=== PATIENT | female | born 1995 | race Caucasian/White ===

== ENCOUNTER 2017-04-14 13:25 | Emergency (ER) | payer BC ==
[~2017-04-14] VITALS: Ht 177.8 cm; Wt 65.2 kg
[2017-04-14 13:31] VITALS: TEMP 36.5; Ht 177.8 cm; Wt 65.2 kg
--- NOTE | 2017-04-14 14:07 | EMERGENCY ROOM VISIT NOTE ---
History First contact with patient: 13:41 Chief Complaint: PELVIC PAIN Stated Complaint: PELVIC PAIN, ABD BLEEDING History of Present Illness The patient is a 21 year old female who presents to the Emergency Room with complaints of heavy vaginal bleeding for the last 2 days. The patient just finished with her menses last week. She does admit to missing one of her control pills earlier this week. She is concerned because there were heavy clots. She denies any severe abdominal cramping. No lightheadedness, chest pain or shortness of breath. No fever or chills. The patient was recently diagnosed with cervical dysplasia. She is due for a biopsy next week. Review of Systems 10 system review performed and negative unless noted in HPI or below Past Medical/Surgical History Cervical dysplasia Social History Smoking Status: Never Smoker Marital Status: single Occupation Status: [employer] student Current/Historical Medications Scheduled Control Pills ( Control Pills), 1 TAB PO DAILY Scheduled PRN Lisdexamfetamine Dimesylate (Vyvanse), 30 MG PO DAILY PRN for UNDECIDED Trazodone Hcl (Trazodone), Unknown Dose PO DAILY PRN for UNDECIDED Physical Exam Vital Signs Date Time Temp Pulse Resp B/P (MAP) Pulse Ox O2 Delivery O2 Flow Rate FiO2 04/14/17 15:32 68 16 118/58 98 Room Air 04/14/17 13:31 36.5 75 18 113/70 97 Room Air Physical Exam VITALS: Vitals are noted on the nurse's note and reviewed by myself. Vital signs stable. GENERAL: 21-year-old female, anxious in appearance,, SKIN: The skin was without rashes, erythema, edema, or bruising. HEAD: Normocephalic atraumatic. HEART: Regular rate and rhythm without murmurs gallops or rubs. LUNGS: Clear to auscultation bilaterally without wheezes, rales or rhonchi. No accessory muscle use. ABDOMEN: Positive bowel sounds x 4.Soft, nontender, without organomegaly. No guarding or rebound tenderness. MUSCULOSKELETAL: No muscle atrophy, erythema, or edema noted. . Strength 5/5 throughout. NEURO: Patient was alert and oriented to person place and time. Normal sensation to touch. No focal neurological deficits. Medical Decision & Procedures ER Provider Diagnostic Interpretation: pelvic US Patient Name: MARY LEARY Unit Number: [id number] Dictated: 04/14/171457 Transcribed: 04/14/171457 EV Printed Date/Time: [~ rep prt dt]/[~ rep prt tm] [~ rep ct labl] - [~ rep ct ivnm] [facility] [place] [address] Dictated: 04/14/171457 Transcribed: 04/14/171457 EV Printed Date/Time: [~ rep prt dt]/[~ rep prt tm] [~ rep ct labl] - [~ rep ct ivnm] IMPRESSION: Unremarkable sonographic assessment of the pelvis. Electronically signed by: Sadi Willis M.D. 04/14/2017 2:59 PM Dictated Date/Time: 04/14/2017 2:58 PM The status of this report is Signed. Draft = Not yet reviewed or approved by Radiologist. Signed = Reviewed and approved by Radiologist. <AttendingPhy></AttendingPhy> <FamilyPhy>[facility]</FamilyPhy> <PrimaryPhy>[facility]</PrimaryPhy> <UnitNumber>[id number]</ UnitNumber> <VisitNumber>[id number]</VisitNumber> <PatientName>JERONIMOMARY Medina</PatientName> <DateOfBirth>1995</DateOfBirth> <Location>[facility]< /Location> <ServiceDate>04/14/17</ServiceDate> <MNE>ESINDI</MNE> <OrderingPhy> Patrick Amos M.D.</OrderingPhy> <OrderingPhyMNE>f rep ord dr vaz</ OrderingPhyMNE> <DictatingPhyMNE>f rep dict dr vaz</DictatingPhyMNE> <CCListMNE> f rep ct miguel ae</CCListMNE> <AdmittingPhyMNE>f pt admit dr vaz</AdmittingPhyMNE> < AttendingPhyMNE>f pt attend dr vaz</AttendingPhyMNE> <ConsultingPhyMNE>f pt consult dr vaz</ConsultingPhyMNE> <FamilyPhyMNE>f pt fam dr mne</FamilyPhyMNE> <OtherPhyMNE>f pt other dr mne</OtherPhyMNE> < PrimaryPhyMNE>f pt prim care dr mne</PrimaryPhyMNE> <ReferringPhyMNE>f pt referring dr mne</ReferringPhyMNE> Laboratory Results 04/14/17 14:00 Red Blood Count 4.56, Mean Corpuscular Volume 86.6, Mean Corpuscular Hemoglobin 30.0, Mean Corpuscular Hemoglobin Concent 34.7, Mean Platelet Volume 10.3, Neutrophils (%) (Auto) 68.5, Lymphocytes (%) (Auto) 22.3, Monocytes (%) (Auto) 8.1, Eosinophils (%) (Auto) 0.7, Basophils (%) (Auto) 0.2, Neutrophils # (Auto) 3.74, Lymphocytes # (Auto) 1.22, Monocytes # (Auto) 0.44, Eosinophils # (Auto) 0.04, Basophils # (Auto) 0.01 04/14/17 14:00 Test 04/14/17 14:00 White Blood Count 5.46 K/uL (4.8-10.8) Red Blood Count 4.56 M/uL (4.2-5.4) Hemoglobin 13.7 g/dL (12.0-16.0) Hematocrit 39.5 % (37-47) Mean Corpuscular Volume 86.6 fL (80-100) Mean Corpuscular Hemoglobin 30.0 pg (25-34) Mean Corpuscular Hemoglobin Concent 34.7 g/dl (32-36) Platelet Count 155 K/uL (130-400) Mean Platelet Volume 10.3 fL (7.4-10.4) Neutrophils (%) (Auto) 68.5 % Lymphocytes (%) (Auto) 22.3 % Monocytes (%) (Auto) 8.1 % Eosinophils (%) (Auto) 0.7 % Basophils (%) (Auto) 0.2 % Neutrophils # (Auto) 3.74 K/uL (1.4-6.5) Lymphocytes # (Auto) 1.22 K/uL (1.2-3.4) Monocytes # (Auto) 0.44 K/uL (0.11-0.59) Eosinophils # (Auto) 0.04 K/uL (0-0.5) Basophils # (Auto) 0.01 K/uL (0-0.2) RDW Standard Deviation 39.7 fL (36.4-46.3) RDW Coefficient of Variation 12.5 % (11.5-14.5) Immature Granulocyte % (Auto) 0.2 % Immature Granulocyte # (Auto) 0.01 K/uL (0.00-0.02) Anion Gap 7.0 mmol/L (3-11) Est Creatinine Clear Calc Drug Dose 110.8 ml/min Estimated GFR () 117.7 Estimated GFR (Non- 101.6 BUN/Creatinine Ratio 13.6 (10-20) Calcium Level 9.1 mg/dl (8.5-10.1) Human Chorionic Gonadotropin, Qual NEG (NEG) ED Course Patient was seen and examined Vital signs including blood pressure were reviewed medications list was verified with patient Labs were obtained, and a saline lock was established A pelvic ultrasound was performed The patient was reassessed and resting comfortably in bed. We discussed the results of her workup. She voiced understanding. I reviewed discharge instructions the patient. They voiced understanding and had no further questions. Medical Decision Differential diagnosis: Menorrhagia, uterine fibroids, , thyroid abnormality, anemia This patient is a 21-year-old female that presents emergency department with heavy vaginal bleeding. On exam, she was nontoxic in appearance. Her abdomen was benign. Her vital signs are stable. Her blood work was unremarkable. An ultrasound was performed. No acute abnormalities were noted. Her breakthrough bleeding is likely due to missing her oral contraceptive. I believe she is stable to be discharged home. She has a follow-up appointment next week for a cervical biopsy with her video producer. If she has any worsening symptoms prior to her appointment, she will return immediately to the emergency department. This chart was completed in part utilizing [employer] Voice Recognition software. Attempts were made to minimize the grammatical errors, random word insertions, pronoun errors and incomplete sentences. Any formal questions or concerns about the content, text or information contained within the body of this dictation should be directly addressed to the provider for clarification. Impression Primary Impression: Vaginal bleeding Departure Information Dispostion Home / Self-Care Condition GOOD Referrals No Doctor, Assigned (PCP) [facility] Additional Instructions You were evaluated in the emergency department for breakthrough vaginal bleeding. No abnormalities were seen in the blood work or the ultrasound. Please follow-up with your DIRECTOR REVENUE as scheduled next week Continue all current medications as prescribed Do not hesitate to return to the emergency department with any new, worsening or concerning symptoms.
[2017-04-14 14:18] LABS: BASO % 0.2 %; BASO ABS # 0.01 K/uL (0-0.2); EOS % 0.7 %; EOS ABS # 0.04 K/uL (0-0.5); HEMATOCRIT 39.5 % (37-47); HEMOGLOBIN 13.7 g/dL (12.0-16.0); IG# 0.01 K/uL (0.00-0.02); LYMPH % 22.3 %; LYMPH ABS # 1.22 K/uL (1.2-3.4); MEAN CELL VOLUME 86.6 fL (80-100); MEAN CORPUSCULAR HGB CONC 34.7 g/dl (32-36); MEAN PLATELET VOLUME 10.3 fL (7.4-10.4); MONO % 8.1 %; MONO ABS # 0.44 K/uL (0.11-0.59); NEUT % 68.5 %; NEUT ABS # 3.74 K/uL (1.4-6.5); PLATELET COUNT 155 K/uL (130-400); RED CELL DISTRIBUTION WIDTH CV 12.5 % (11.5-14.5); RED CELL DISTRIBUTION WIDTH SD 39.7 fL (36.4-46.3); WHITE BLOOD COUNT 5.46 K/uL (4.8-10.8)
[2017-04-14] MEDS ORDERED: BCPILLS PO (14:35)
[2017-04-14] MEDS ORDERED: LISD30CA4 PO (14:35)
[2017-04-14] MEDS ORDERED: TRAZ50TA35 PO (14:35)
[2017-04-14 14:42] LABS: CALCIUM 9.1 mg/dl (8.5-10.1); CREATININE 0.82 mg/dl (0.60-1.20); POTASSIUM 3.9 mmol/L (3.5-5.1)
--- NOTE | 2017-04-14 15:01 | DIAGNOSTIC IMAGING REPORT ---
ULTRASOUND OF THE PELVIS CLINICAL HISTORY: Heavy vaginal bleeding. Cramping. COMPARISON STUDY: No priors. TECHNIQUE: Real-time, grayscale, and color flow sonography of the pelvis is performed both transabdominally and endovaginally. Images are reviewed in the transverse and longitudinal planes. FINDINGS: Uterus: The uterus is normal in size and echotexture, measuring 6.5 x 3.2 x 4.2 cm. Endometrium: The endometrium is normal in appearance, and the endometrial stripe is normal in thickness measuring up to 0.6 cm. Ovaries: The ovaries are normal in size and morphology. The right ovary measures 2.9 x 1.0 x 2.0 cm and the left ovary measures 2.1 x 1.3 x 1.2 cm. Normal Doppler waveforms are shown within both ovaries. Pelvis: There is no free fluid in the cul-de-sac. No concerning adnexal lesion is seen. IMPRESSION: Unremarkable sonographic assessment of the pelvis. Electronically signed by: Sadi Willis M.D. 04/14/2017 2:59 PM Dictated Date/Time: 04/14/2017 2:58 PM
[2017-04-14 15:32] VITALS: BP 118/58; PULSE 68; O2SAT 98
== END 2017-04-14 15:46 | disposition home or self-care (01) ==
LOC: C.EDB 13:27 → C.EDA 15:46
DX: N93.9 Abnormal uterine and vaginal bleeding, unspecified (principal); R10.2 Pelvic and perineal pain

== ENCOUNTER → 2017-04-17 | Outpatient (CLI) | payer BC ==
[~2017-04-17] MED LIST: BCPILLS PO; LISD30CA4 PO; TRAZ50TA35 PO
== END | disposition home or self-care (01) ==
LOC: C.PAPS 15:06
PROVIDERS: ATTEND Obstetrics & Gynecology
DX: R87.612 Low grade squamous intraepithelial lesion on cytologic smear of cervix (LGSIL) (principal)

== ENCOUNTER → 2017-04-17 | Outpatient (CLI) | payer BC | END | disposition home or self-care (01) | LOC: C.PATHSPEC 15:01 | PROVIDERS: ATTEND Obstetrics & Gynecology | DX: R87.612 Low grade squamous intraepithelial lesion on cytologic smear of cervix (LGSIL) (principal) ==

== ENCOUNTER → 2017-06-26 | Outpatient (CLI) | payer BC | END | disposition home or self-care (01) | LOC: C.PAPS 14:38 | PROVIDERS: ATTEND Obstetrics & Gynecology | DX: R87.612 Low grade squamous intraepithelial lesion on cytologic smear of cervix (LGSIL) (principal) ==